=== PATIENT | female | born 1980 | race Caucasian/White ===

== ENCOUNTER → 2017-11-14 | Outpatient (CLI) | payer BC ==
[~2017-11-14] MED LIST: ACE325 PO; ALBU8.5H12 IH; CETI10CA8 PO; CIP500 PO; CLON-298 PO; CODE473S6 PO; CYC10 PO; DIP25 PO; DOC100 PO; FLUO-201 PO; FLUT16SP19 NS; GUAI177L6 PO; HYDR-4309 PO; IBU800 PO; IBUP800T37 PO; KET10 PO; L-THYROXINE PO; LEVO50TA86 PO; LOR5 PO; LOR5/325 PO; LORA-1458 PO; LORA10CA3 PO; MONT10TA PO; NAPR500T75 PO; NORE-7 PO; NORG1TAB61 PO; OMEP-125 PO; OXYC-865 PO; PER PO; PHENA200 PO; PRE20 PO; PSEU1TAB PO; SULF-198 PO; TRAM-420 PO; TRAM-627 PO
[2017-11-14 13:28] LABS: LDL CHOLESTEROL 117 mg/dl
== END ==
LOC: LAB 12:53
PROVIDERS: ATTEND Nurse Practitioner Family
DX: E03.9 Hypothyroidism, unspecified (principal); E55.9 Vitamin D deficiency, unspecified
CPT/HCPCS: 36415; 82040; 82247; 82306; 82310; 82374; 82435; 82465; 82565; 82947; 83718; 84075; 84132; 84155; 84295; 84443; 84450; 84460; 84478; 84520

== ENCOUNTER → 2018-01-08 | Outpatient (CLI) | payer BC ==
--- NOTE | 2018-01-08 15:06 | RADIOLOGY IMAGING REPORT ---
[place] [facility] [place] Lauryn Ho : 1980 MR: [id number] V: [id number] EXAM DATE: ORDERING PHYSICIAN: KEVIN AYALA TECHNOLOGIST: Location: [facility] - [place] Patient: Lauryn Ho : 1980 Visit/Account:[id number] Date of Sevice: 01/08/2018 SINUSES W/O CONTRAST Provided history: Allergic sinusitis. Chronic maxillary sinusitis. Additional pertinent history: none COMPARISON STUDIES: none TECHNIQUE: Contiguous axial images were obtained through the paranasal sinuses without intravenous c ontrast administration. Coronal reformatted images were obtained from the axial source data. One of the following dose optimization techniques was utilized in the performance of this exam: Autom ated exposure control; adjustment of the mA and/or kV according to the patient's size; or use of an i terative reconstruction technique. Specific details can be referenced in the facility's radiology CT exam operational policy. FINDINGS: RIGHT Maxillary antrum / OMC: There is no mucosal thickening and/or fluid level. A small Luis Enrique cell and sm all osseous periventricular T2 narrowing of the ostium to the infundibulum. The infundibular channel itself remains widely patent. Hiatus semilunaris also patent. Frontal / anterior ethmoid cells: No mucosal thickening. A moderate size agger-nasi cell narrows the frontal recess. Sphenoid / posterior ethmoid cells: Small retention cyst noted posteriorly right sphenoid cell. LEFT Maxillary antrum / OMC: negative Frontal / anterior ethmoid cells: There are several organizing cells contributing to narrowing of the frontal recess. No inflammation. Sphenoid / posterior ethmoid cells: negative Nasal septum / turbinates / cavity: Mild leftward deviation with a moderate-sized left lateral nasal septal spur level of middle meatus does not fully detoxed lateral wall. No nasal polyps. Cribriform plate / fovea ethmoidalis / floor of sella: negative Basal foramina: negative TMJs: negative Orbits: negative Visualized intracranial contents / surrounding soft tissues: negative IMPRESSION: 1. No significant paranasal sinus inflammatory disease and no nasal polyps. 2. Moderate narrowing of the ostium to the right infundibulum for reasons discussed above. This may p redispose to intermittent right maxillary sinus inflammatory disease. None currently. 3. Bilateral agger nasi cells can predispose to frontoethmoidal recess narrowing but I see no inflamm atory change current time. Report Dictated By: González Garcia MD at 01/08/2018 2:50 PM Report E-Signed By: González Garcia MD at 01/08/2018 3:02 PM WSN:[email or web address]
== END ==
LOC: CT 01:31
PROVIDERS: ATTEND Otolaryngology
DX: J30.1 Allergic rhinitis due to pollen (principal); J32.0 Chronic maxillary sinusitis; J34.2 Deviated nasal septum
CPT/HCPCS: 70486

== ENCOUNTER → 2018-02-27 | Outpatient (CLI) | payer BC | LOC: LAB 10:03 | PROVIDERS: ATTEND Nurse Practitioner Family | DX: E55.9 Vitamin D deficiency, unspecified (principal); E03.9 Hypothyroidism, unspecified | CPT/HCPCS: 36415; 82306; 84443 ==

== ENCOUNTER → 2018-06-05 | Outpatient (CLI) | payer BC ==
[~2018-06-05] MED LIST changes: -CLON-298 PO; +CLON-331 PO
== END ==
LOC: LAB 10:07
PROVIDERS: ATTEND Nurse Practitioner Family
DX: E03.9 Hypothyroidism, unspecified (principal)
CPT/HCPCS: 36415; 82040; 82247; 82310; 82374; 82435; 82565; 82947; 84075; 84132; 84155; 84295; 84443; 84450; 84460; 84520

== ENCOUNTER 2018-06-18 20:13 | Emergency (ER) | payer BC ==
--- NOTE | 2018-06-18 20:19 | ER Report ---
History and Physical Time Seen By MD: 20:17 HPI/ROS CHIEF COMPLAINT: Right foot and ankle pain HISTORY OF PRESENT ILLNESS: 38-year-old female presents with right ankle pain that started last night. She recalls no traumatic injury. She notes throbbing pain 06/08 unrelieved with ibuprofen 400 mg. She notes no swelling. She denies history of gout. Patient notes pain in the forefoot as well as the ankle. She has decreased range of motion at the ankle. Allergies: Coded Allergies: amoxicillin (Verified Allergy, Intermediate, PROJECTILE VOMITING, 06/18/18) erythromycin base (Verified Allergy, Intermediate, PROJECTILE VOMITING, ) Penicillins (Verified Allergy, Mild, 06/18/18) Uncoded Allergies: HAYFEVER (Allergy, Intermediate, SNEEZING, ITCHING, WATERY EYES, 01/30/13) Home Meds Active Scripts Tramadol Hcl (TRAMADOL HCL) 50 Mg Tablet, 1 TAB PO Q6H Y for PAIN, #12 TAB Prov:JOSUÉ BLOOD DO 06/18/18 Reported Medications Omeprazole (OMEPRAZOLE) 20 Mg Capsule.dr, 1 CAP PO QDAY, CAP 06/11/17 Fluoxetine Hcl (PROZAC) 10 Mg Capsule, 60 MG PO QDAY, 0 Refills 06/24/13 Norgestrel-Ethinyl Estradiol (LO-OVRAL-28) 1 Each Tablet, 1 EACH PO 05/29/13 Discontinued Reported Medications Levothyroxine Sodium (LEVOTHYROXINE SODIUM) 50 Mcg Tablet, 50 MCG PO QDAY, TAB 09/10/16 Loratadine (CLARITIN) 10 Mg Capsule, 10 MG PO QDAY, CAPSULE 12/16/15 Reviewed Nurses Notes: Yes Old Medical Records Reviewed: Yes Hx Smoking: Yes (1/2ppd) Smoking Status: Current: Every Day Smoker Exposure to Second Hand Smoke?: Yes Hx Substance Use Disorder: No Hx Alcohol Use: No Constitutional Vital Sign - Last 24 Hours 06/18/18 06/18/18 06/18/18 06/18/18 20:16 20:20 20:28 20:43 Temp 98.3 Pulse 72 75 76 Resp 16 B/P (MAP) 163/76 128/76 (93) Pulse Ox 94 92 92 O2 Delivery Room Air 06/18/18 20:58 Pulse 74 Pulse Ox 92 Physical Exam General appearance: Alert no distress. Respiratory: Chest is non tender, lungs are clear to auscultation. Cardiac: Regular rate and rhythm Extremities: Examination of the right foot reveals no soft tissue swelling, bruising or ecchymosis. There is tenderness around the ankle and the top of the forefoot. All toes are neurovascularly intact. There is no pain on movement of the toes. There is pain on movement of the ankle. He is no warmth or swelling to any of the joints. DIFFERENTIAL DIAGNOSIS: After history and physical exam differential diagnosis was considered for sprain, strain, fracture, dislocation, arthritis flare, contusion, gout Medical Decision Making EKG/Imaging Imaging X-ray: Three-view right ankle was obtained. I viewed the images myself on the PACS system. My interpretation of the images is: No fracture no dislocation or malalignment. There were some degenerative changes noted The radiologist interpretation had no clinically significant variation from this interpretation. ED Course/Re-evaluation ED Course Patient was admitted to an examination room. H&P was done. The differential diagnoses was considered. On clinical examination. Patient has significant pain in her ankle. There is no soft tissue swelling is no warmth. There is no effusion. There is pain on movement. 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 She recalls no injury. Patient's x-rays were unremarkable. Results are discussed with her. A conservative treatment plan is formulated. Patient advised ibuprofen 600 mg 3 times daily. She's given a prescription for tramadol for temporary pain relief. Patient's placed in Diego wrap and air splint for support. Patient advised to follow-up with primary care if unimproved in 3-5 days. Decision to Disposition Date: Jun 18, 2018 Decision to Disposition Time: 20:54 Depart Departure Latest Vital Signs Vital Signs Date Time Temp Pulse Resp B/P (MAP) Pulse Ox O2 Delivery O2 Flow Rate FiO2 06/18/18 20:58 74 92 06/18/18 20:20 128/76 (93) 06/18/18 20:16 98.3 16 Room Air Impression: Primary Impression: Acute right ankle pain Condition: Improved Disposition: HOME OR SELF-CARE Referrals: BLOSSOM JACOBSON (PCP) New Scripts Tramadol Hcl (TRAMADOL HCL) 50 Mg Tablet 1 TAB PO Q6H Y for PAIN, #12 TAB Prov: JOSUÉ BLOOD DO 06/18/18 Patient Instructions: Foot Sprain (ED) Additional Instructions: Take ibuprofen 200 mg 3 tablets 3 times a day with food Apply heating pad to your foot Wear splint for one week Use tramadol for pain relief Follow-up with her primary care if unimproved in 3-5 days JOSUÉ BLOOD DO Jun 18, 2018 20:18
[2018-06-18 20:20] VITALS: BP 128/76
[2018-06-18] MEDS ORDERED: TRAM-420 PO (20:57)
[2018-06-18] MEDS ORDERED: traMADol 50 MG TAB TH 2 TAB/BOTTLE PO ONE (21:00)
--- NOTE | 2018-06-18 21:08 | RADIOLOGY IMAGING REPORT ---
FACILITY: [facility] - [place] PATIENT NAME: Lauryn Ho : 1980 MR: [id number] V: [id number] EXAM DATE: ORDERING PHYSICIAN: JOSUÉ BLOOD TECHNOLOGIST: Location: [facility] - [place] Patient: Lauryn Ho : 1980 Visit/Account:[id number] Date of Sevice: 06/18/2018 ANKLE 3 VIEW MIN RIGHT HISTORY: Pain. No acute injury. COMPARISON: None FINDINGS: No evidence of acute fracture or dislocation. Talar dome is smooth in contour. Bohler angle is well maintained. Base of the 5th metatarsal is intact. Dorsal spurring at the midfoot and navicul ar. Probable large os peroneum. IMPRESSION: 1. No acute osseous abnormality. Report Dictated By: Sunil Narvaez MD at 06/18/2018 9:02 PM Report E-Signed By: Sunil Narvaez MD at 06/18/2018 9:05 PM [id number]
== END 2018-06-18 21:11 | disposition home or self-care (01) ==
LOC: ER 20:42
DX: M79.671 Pain in right foot (principal); M25.571 Pain in right ankle and joints of right foot
CPT/HCPCS: 99283; C9399; L1930

== ENCOUNTER → 2018-08-06 | Outpatient (CLI) | payer BC | LOC: LAB 14:17 | PROVIDERS: ATTEND Nurse Practitioner Family | DX: E03.9 Hypothyroidism, unspecified (principal); E55.9 Vitamin D deficiency, unspecified; G44.221 Chronic tension-type headache, intractable | CPT/HCPCS: 36415; 82040; 82247; 82306; 82310; 82374; 82435; 82565; 82947; 84075; 84132; 84155; 84295; 84443; 84450; 84460; 84520 ==

== ENCOUNTER 2018-08-16 18:01 | Emergency (ER) | payer BC ==
[~2018-08-16 18:01] MED LIST changes: -HYDR-4309 PO; +HYDR-653 PO
--- NOTE | 2018-08-16 18:09 | ER Report ---
History and Physical Time Seen By MD: 18:06 HPI/ROS CHIEF COMPLAINT: Left upper quadrant abdominal pain HISTORY OF PRESENT ILLNESS: [id number] female presents ambulatory to the ER complaining of severe left upper quadrant pain, onset 45 minutes ago. She notes no radiation. She notes no alleviating or exacerbating factors. She notes some mild nausea. She notes no hematuria. She denies history of kidney stones. She denies change in bowel habits such as diarrhea or constipation. She is status post appendectomy. She notes no fever or chills. REVIEW OF SYSTEMS: Respiratory: No cough, no dyspnea. Cardiovascular: No chest pain, no palpitations. Gastrointestinal: As above Musculoskeletal: No back pain. Allergies: Coded Allergies: amoxicillin (Verified Allergy, Intermediate, PROJECTILE VOMITING, 07/30 06/16) erythromycin base (Verified Allergy, Intermediate, PROJECTILE VOMITING, 08/16/18) Penicillins (Verified Allergy, Mild, 08/16/18) Uncoded Allergies: HAYFEVER (Allergy, Intermediate, SNEEZING, ITCHING, WATERY EYES, 01/30/13) Home Meds Active Scripts Hydrocodone Bit/Acetaminophen (NORCO 5-325 TABLET) 1 Each Tablet, 1 EACH PO Q4H PRN for PAIN, #10 TAB Prov:JOSUÉ BLOOD DO 08/16/18 Reported Medications Sulfamethoxazole/Trimet 800-160 Mg Tab (BACTRIM DS TABLET) 1 Each Tablet, 1 TAB PO Q12H, TAB 08/16/18 Guaifenesin (MUCINEX) 600 Mg Tablet.er, 600 MG PO 08/16/18 Diphenhydramine Hcl (BENADRYL) 25 Mg Capsule, 25 MG PO Q6-8H, CAPSULE 08/16/18 Omeprazole (OMEPRAZOLE) 20 Mg Capsule.dr, 1 CAP PO QDAY, CAP 06/11/17 Fluoxetine Hcl (PROZAC) 10 Mg Capsule, 60 MG PO QDAY, 0 Refills 06/24/13 Norgestrel-Ethinyl Estradiol (LO-OVRAL-28) 1 Each Tablet, 1 EACH PO 05/29/13 Discontinued Scripts Tramadol Hcl (TRAMADOL HCL) 50 Mg Tablet, 1 TAB PO Q6H PRN for PAIN, #12 TAB Prov:JOSUÉ BLOOD DO 06/18/18 Reviewed Nurses Notes: Yes Old Medical Records Reviewed: Yes Hx Smoking: Yes (1/2ppd) Smoking Status: Current: Every Day Smoker Exposure to Second Hand Smoke?: Yes Hx Substance Use Disorder: No Hx Alcohol Use: No Constitutional Vital Sign - Last 24 Hours 08/16/18 08/16/18 18:17 21:07 Temp 98.9 Pulse 73 85 Resp 16 16 B/P (MAP) 152/76 128/64 (85) Pulse Ox 95 92 O2 Delivery Room Air Room Air Physical Exam General Appearance: The patient is alert, has no immediate need for airway protection and no current signs of toxicity. Vital signs stable, afebrile, pulse ox normal Eyes: Pupils equal and round no injection. Anicteric sclera Respiratory: Chest is non tender, lungs are clear to auscultation. Cardiac: regular rate and rhythm Gastrointestinal: Abdomen is soft, moderate left upper quadrant tenderness with guarding, no rebound, no masses, bowel sounds decreased. Musculoskeletal: Neck: Neck is supple and non tender. Extremities have full range of motion and are non tender. Skin: No rashes or lesions. DIFFERENTIAL DIAGNOSIS: After history and physical exam differential diagnosis was considered for abdominal pain including but not limited to appendicitis, cholecystitis, gastritis and urinary tract infection. Medical Decision Making Data Points Result Diagram: 08/16/186 08/16/181855 Laboratory Hematology Test 08/16/18 18:16 08/16/18 18:56 Urine Color Straw Urine Clarity Clear Urine pH 6.0 pH (4.8-9.5) Urine Specific Page 1.009 Urine Protein Negative mg/dL (NEGATIVE) Urine Glucose (UA) Negative mg/dL (NEGATIVE) Urine Ketones Negative mg/dL (NEGATIVE) Urine Blood Small (NEGATIVE) Urine Nitrite Negative (NEGATIVE) Urine Bilirubin Negative (NEGATIVE) Urine Urobilinogen Negative mg/dL (0.2-1.9) Urine Leukocyte Esterase Moderate (NEGATIVE) Urine RBC 2 /HPF (0-2/HPF) Urine WBC 4 /HPF (0-5/HPF) Urine Squamous Epithelial Cells Many /LPF (</=FEW) Urine Bacteria Few /HPF (NONE-FEW) Urine Mucus None /HPF (NONE-FEW) Red Blood Count 5.06 M/uL (4.17-5.56) Mean Corpuscular Volume 90.7 fL (80.0-96.0) Mean Corpuscular Hemoglobin 31.5 pg (26.0-33.0) Mean Corpuscular Hemoglobin Concent 34.7 g/dL (32.0-36.0) Red Cell Distribution Width 13.2 % (11.5-14.5) Mean Platelet Volume 9.3 fL (7.2-11.1) Neutrophils (%) (Auto) 52.7 % (39.4-72.5) Lymphocytes (%) (Auto) 33.2 % (17.6-49.6) Monocytes (%) (Auto) 10.3 % (4.1-12.4) Eosinophils (%) (Auto) 1.6 % (0.4-6.7) Basophils (%) (Auto) 2.2 % (0.3-1.4) Nucleated RBC Relative Count (auto) 0.1 /100WBC Neutrophils # (Auto) 4.9 K/uL (2.0-7.4) Lymphocytes # (Auto) 3.1 K/uL (1.3-3.6) Monocytes # (Auto) 1.0 K/uL (0.3-1.0) Eosinophils # (Auto) 0.1 K/uL (0.0-0.5) Basophils # (Auto) 0.2 K/uL (0.0-0.1) Nucleated RBC Absolute Count (auto) 0.01 K/uL Sodium Level 142 mmol/L (137-145) Potassium Level 3.4 mmol/L (3.5-5.0) Chloride Level 104 mmol/L (98-107) Carbon Dioxide Level 26 mmol/L (22-31) Blood Urea Nitrogen 16 mg/dl (7-18) Creatinine 0.80 mg/dl (0.52-1.04) Glomerular Filtration Rate Calc > 60.0 Random Glucose 89 mg/dl (75-110) Calcium Level 9.0 mg/dl (8.4-10.2) Total Bilirubin 0.2 mg/dl (0.2-1.3) Aspartate Amino Transf (AST/SGOT) 20 U/L (0-35) Alanine Aminotransferase (ALT/SGPT) 22 U/L (0-56) Alkaline Phosphatase 58 U/L (0-126) Total Protein 7.1 g/dl (6.3-8.2) Albumin 3.9 g/dl (3.5-5.0) Amylase Level 108 U/L (0-110) Lipase 147 U/L (23-300) Human Chorionic Gonadotropin, Qual Negative (NEGATIVE) Chemistry Test 08/16/18 18:16 08/16/18 18:56 Urine Color Straw Urine Clarity Clear Urine pH 6.0 pH (4.8-9.5) Urine Specific Page 1.009 Urine Protein Negative mg/dL (NEGATIVE) Urine Glucose (UA) Negative mg/dL (NEGATIVE) Urine Ketones Negative mg/dL (NEGATIVE) Urine Blood Small (NEGATIVE) Urine Nitrite Negative (NEGATIVE) Urine Bilirubin Negative (NEGATIVE) Urine Urobilinogen Negative mg/dL (0.2-1.9) Urine Leukocyte Esterase Moderate (NEGATIVE) Urine RBC 2 /HPF (0-2/HPF) Urine WBC 4 /HPF (0-5/HPF) Urine Squamous Epithelial Cells Many /LPF (</=FEW) Urine Bacteria Few /HPF (NONE-FEW) Urine Mucus None /HPF (NONE-FEW) White Blood Count 9.2 k/uL (4.5-11.0) Red Blood Count 5.06 M/uL (4.17-5.56) Hemoglobin 16.0 g/dL (12.0-16.0) Hematocrit 45.9 % (34.0-47.0) Mean Corpuscular Volume 90.7 fL (80.0-96.0) Mean Corpuscular Hemoglobin 31.5 pg (26.0-33.0) Mean Corpuscular Hemoglobin Concent 34.7 g/dL (32.0-36.0) Red Cell Distribution Width 13.2 % (11.5-14.5) Platelet Count 213 K/uL (150-450) Mean Platelet Volume 9.3 fL (7.2-11.1) Neutrophils (%) (Auto) 52.7 % (39.4-72.5) Lymphocytes (%) (Auto) 33.2 % (17.6-49.6) Monocytes (%) (Auto) 10.3 % (4.1-12.4) Eosinophils (%) (Auto) 1.6 % (0.4-6.7) Basophils (%) (Auto) 2.2 % (0.3-1.4) Nucleated RBC Relative Count (auto) 0.1 /100WBC Neutrophils # (Auto) 4.9 K/uL (2.0-7.4) Lymphocytes # (Auto) 3.1 K/uL (1.3-3.6) Monocytes # (Auto) 1.0 K/uL (0.3-1.0) Eosinophils # (Auto) 0.1 K/uL (0.0-0.5) Basophils # (Auto) 0.2 K/uL (0.0-0.1) Nucleated RBC Absolute Count (auto) 0.01 K/uL Glomerular Filtration Rate Calc > 60.0 Calcium Level 9.0 mg/dl (8.4-10.2) Total Bilirubin 0.2 mg/dl (0.2-1.3) Aspartate Amino Transf (AST/SGOT) 20 U/L (0-35) Alanine Aminotransferase (ALT/SGPT) 22 U/L (0-56) Alkaline Phosphatase 58 U/L (0-126) Total Protein 7.1 g/dl (6.3-8.2) Albumin 3.9 g/dl (3.5-5.0) Amylase Level 108 U/L (0-110) Lipase 147 U/L (23-300) Human Chorionic Gonadotropin, Qual Negative (NEGATIVE) Urinalysis Test 08/16/18 18:16 Urine Color Straw Urine Clarity Clear Urine pH 6.0 pH (4.8-9.5) Urine Specific Page 1.009 Urine Protein Negative mg/dL (NEGATIVE) Urine Glucose (UA) Negative mg/dL (NEGATIVE) Urine Ketones Negative mg/dL (NEGATIVE) Urine Blood Small (NEGATIVE) Urine Nitrite Negative (NEGATIVE) Urine Bilirubin Negative (NEGATIVE) Urine Urobilinogen Negative mg/dL (0.2-1.9) Urine Leukocyte Esterase Moderate (NEGATIVE) Urine RBC 2 /HPF (0-2/HPF) Urine WBC 4 /HPF (0-5/HPF) Urine Squamous Epithelial Cells Many /LPF (</=FEW) Urine Bacteria Few /HPF (NONE-FEW) Urine Mucus None /HPF (NONE-FEW) EKG/Imaging Imaging Results: CT scan of the mid and pelvis with IV contrast was obtained. The results of the study are EXAMINATION: CT abdomen and pelvis with IV contrast HISTORY: Left lower quadrant pain. TECHNIQUE: Axial CT images of the abdomen and pelvis were obtained with IV contrast, with coronal and sagittal 2D reconstructed images. One of the following dose optimization techniques was utilized in the performance of this exam: Automated exposure control; adjustment of the mA and/or kV according to the patient's size; or use of an iterative reconstruction technique. Specific details can be referenced in the facility's radiology CT exam operational policy. Contrast: 75 mL of IV Isovue-370. COMPARISON: None. FINDINGS: Liver: Negative. Gallbladder and bile ducts: Negative. Spleen: Negative. Pancreas: Negative. Adrenal glands: Negative. Kidneys: Negative. No hydronephrosis or urinary calculi. Bowel and peritoneum: The small bowel and colon are normal in caliber, without evidence of obstruction or any focal inflammatory process. No localized bowel wall thickening. The appendix is surgically absent. No free fluid or free intraperitoneal air. Small hiatal hernia. Pelvic structures: Lobular uterus with a likely 2.2 cm fibroid along the right uterine fundus. Lymph node assessment: Negative. Vessels: Negative. Musculoskeletal: Negative. Body wall: Negative. Lung bases: Negative. IMPRESSION: 1. No CT evidence of acute intra-abdominal pathology. No source of left-sided pain is identified. 2. The small bowel and colon are unremarkable by CT. Prior appendectomy. 3. Small hiatal hernia. 4. Uterine fibroid. The study was read by the radiologist. I viewed the images myself on the PACS system. ED Course/Re-evaluation Clinical Indication for ER IV: Hydration, IV Access ED Course Patient was admitted to an examination room. H&P was done. The differential diagnoses was considered. On conical examination here left upper quadrant pain with rebound and guarding. Her diagnostic studies are unremarkable. Patient's treated with IV fluids, Zofran, fentanyl, Toradol. Can of the abdomen and pelvis was performed. Since her pain persisted despite medication with analgesics. Her CAT scan was unremarkable. Her results are discussed with her. She is advised to conservative treatment plan of clear liquid diet. She was given a limited supply of hydrocodone pain pills #10 for temporary pain relief. She is advised to follow-up with her primary care if unimproved in 3-5 days. Decision to Disposition Date: Aug 16, 2018 Decision to Disposition Time: 20:59 Depart Departure Latest Vital Signs Vital Signs Date Time Temp Pulse Resp B/P (MAP) Pulse Ox O2 Delivery O2 Flow Rate FiO2 08/16/18 21:07 85 16 128/64 (85) 92 Room Air 08/16/18 18:17 98.9 Impression: Primary Impression: Left upper quadrant abdominal pain of unknown etiology Additional Impression: Urinary tract infection Condition: Improved Disposition: HOME OR SELF-CARE Referrals: BLOSSOM JACOBSON (PCP) New Scripts Hydrocodone Bit/Acetaminophen (NORCO 5-325 TABLET) 1 Each Tablet 1 EACH PO Q4H PRN for PAIN, #10 TAB Prov: JOSUÉ BLOOD DO 08/16/18 Patient Instructions: Abdominal Pain (ED), Clear Liquid Diet (ED) Additional Instructions: Follow-up with your primary care if unimproved in 2 days Problem Qualifiers Additional Impression: Urinary tract infection Urinary tract infection type: acute cystitis Hematuria presence: without hematuria Qualified Codes: N30.00 - Acute cystitis without hematuria JOSUÉ BLOOD DO Aug 16, 2018 18:09
[2018-08-16] MEDS ORDERED: DIPH-740 PO (18:22)
[2018-08-16] MEDS ORDERED: SULF-198 PO (18:22)
[2018-08-16] MEDS ORDERED: GUAI600T57 PO (18:22)
[2018-08-16] MEDS ORDERED: NS(*) 0.9% 1000 ML BAG 1,000 ML IV ONE (18:22)
[2018-08-16] MEDS ORDERED: ONDANSETRON 4 MG/2 ML VIAL IVP ONE (18:25)
[2018-08-16] MEDS ORDERED: MORPHINE 4 MG/ML SDV IVP ONE (18:25)
[2018-08-16 19:09] LABS: PLATELET COUNT, AUTOMATED 213 K/uL (150-450)
[2018-08-16] MEDS ORDERED: KETOROLAC 30 MG/ML VIAL IVP ONE (19:25)
[2018-08-16] MEDS ORDERED: IOPAMIDOL 76% 75 ML INFUS BTL 75 ML ONE (20:11)
--- NOTE | 2018-08-16 20:52 | RADIOLOGY IMAGING REPORT ---
FACILITY: [facility] - [place] PATIENT NAME: Lauryn Ho : 1980 MR: [id number] V: [id number] EXAM DATE: ORDERING PHYSICIAN: JOSUÉ BLOOD TECHNOLOGIST: Location: [facility] - [place] Patient: Lauryn Ho : 1980 Visit/Account:[id number] Date of Sevice: 08/16/2018 EXAMINATION: CT abdomen and pelvis with IV contrast HISTORY: Left lower quadrant pain. TECHNIQUE: Axial CT images of the abdomen and pelvis were obtained with IV contrast, with coronal a nd sagittal 2D reconstructed images. One of the following dose optimization techniques was utilized in the performance of this exam: Autom ated exposure control; adjustment of the mA and/or kV according to the patient's size; or use of an i terative reconstruction technique. Specific details can be referenced in the facility's radiology C T exam operational policy. Contrast: 75 mL of IV Isovue-370. COMPARISON: None. FINDINGS: Liver: Negative. Gallbladder and bile ducts: Negative. Spleen: Negative. Pancreas: Negative. Adrenal glands: Negative. Kidneys: Negative. No hydronephrosis or urinary calculi. Bowel and peritoneum: The small bowel and colon are normal in caliber, without evidence of obstructi on or any focal inflammatory process. No localized bowel wall thickening. The appendix is surgically absent. No free fluid or free intraperitoneal air. Small hiatal hernia. Pelvic structures: Lobular uterus with a likely 2.2 cm fibroid along the right uterine fundus. Lymph node assessment: Negative. Vessels: Negative. Musculoskeletal: Negative. Body wall: Negative. Lung bases: Negative. IMPRESSION: 1. No CT evidence of acute intra-abdominal pathology. No source of left-sided pain is identified. 2. The small bowel and colon are unremarkable by CT. Prior appendectomy. 3. Small hiatal hernia. 4. Uterine fibroid. Report Dictated By: Zacarias Bauer MD at 08/16/2018 8:40 PM Report E-Signed By: Zacarias Bauer MD at 08/16/2018 8:48 PM WSN:[id number]
[2018-08-16] MEDS ORDERED: HYDR-653 PO (21:02)
[2018-08-16] MEDS ORDERED: ACET/HYDROC 5/325MG TH ER ONLY 2 TAB/BOTTLE PO ONE (21:05)
[2018-08-16 21:07] VITALS: BP 128/64
== END 2018-08-16 21:16 | disposition home or self-care (01) ==
LOC: ER 18:36
DX: R10.12 Left upper quadrant pain (principal); N30.00 Acute cystitis without hematuria; F17.210 Nicotine dependence, cigarettes, uncomplicated
CPT/HCPCS: 74177; 81001; 82150; 83690; 84703; 85025; 96374; 96375; 99284; J1885; J2270; J2405; J7030; Q9967; 82040; 82247; 82310; 82374; 82435; 82565; 82947; 84075; 84132; 84155; 84295; 84450; 84460; 84520

== ENCOUNTER 2018-08-21 19:56 | Emergency (ER) | payer BC ==
[~2018-08-21 19:56] MED LIST changes: +DIPH-740 PO; +GUAI600T57 PO
--- NOTE | 2018-08-21 20:11 | ER Report ---
History and Physical Time Seen By MD: 20:11 Hx. of Stated Complaint: PT HAS HAD LOWER LEFT BACK PAIN FOR A WEEK BUT IT STARTED GETTING SHARP AND PAINFUL TONIGHT. HPI/ROS CHIEF COMPLAINT: Abdominal pain, left flank pain HISTORY OF PRESENT ILLNESS: 38-year-old female patient presents to the emergency room with complaint of abdominal pain and left flank pain. Patient states that she has had this pain since last week, she was seen last week and had an unremarkable workup. She states that she was sitting there watching TV this evening when the pain started. States the pain is worse today than it was a week ago. She denies any nausea, vomiting or diarrhea. Patient states she is not taking any medication for this. She states she does have a follow-up appointment on with her primary care provider. Patient states there is nothing seems to make the pain better or worse. She states she does have some dizziness from time to time. She states she is unsure of the cause of the dizziness. REVIEW OF SYSTEMS: Respiratory: No cough, no dyspnea. Cardiovascular: No chest pain, no palpitations. Gastrointestinal: As noted above Musculoskeletal: No back pain. Allergies: Coded Allergies: amoxicillin (Verified Allergy, Intermediate, PROJECTILE VOMITING, 08/21/18) erythromycin base (Verified Allergy, Intermediate, PROJECTILE VOMITING, 08/21/18) Penicillins (Verified Allergy, Mild, 08/21/18) Uncoded Allergies: HAYFEVER (Allergy, Intermediate, SNEEZING, ITCHING, WATERY EYES, 01/30/13) Home Meds Active Scripts Ondansetron (ZOFRAN ODT) 4 Mg Tab.rapdis, 4 MG PO Q6H PRN for NAUSEA/VOMITING, #20 TAB.ROBYN Prov:COLUMBA DURANT SEAM RUBBING MACHINE OPERATOR 08/21/18 Hydrocodone Bit/Acetaminophen (HYDROCODON-ACETAMINOPHEN 5-325) 1 Each Tablet, 1 EACH PO Q4-6H PRN for PAIN, #10 TAB Prov:COLUMBA DURANT SEAM RUBBING MACHINE OPERATOR 08/21/18 Hydrocodone Bit/Acetaminophen (NORCO 5-325 TABLET) 1 Each Tablet, 1 EACH PO Q4H PRN for PAIN, #10 TAB Prov:JOSUÉ BLOOD DO 08/16/18 Reported Medications Sulfamethoxazole/Trimet 800-160 Mg Tab (BACTRIM DS TABLET) 1 Each Tablet, 1 TAB PO Q12H, TAB 08/16/18 Guaifenesin (MUCINEX) 600 Mg Tablet.er, 600 MG PO 08/16/18 Diphenhydramine Hcl (BENADRYL) 25 Mg Capsule, 25 MG PO Q6-8H, CAPSULE 08/16/18 Omeprazole (OMEPRAZOLE) 20 Mg Capsule.dr, 1 CAP PO QDAY, CAP 06/11/17 Fluoxetine Hcl (PROZAC) 10 Mg Capsule, 60 MG PO QDAY, 0 Refills 06/24/13 Norgestrel-Ethinyl Estradiol (LO-OVRAL-28) 1 Each Tablet, 1 EACH PO 05/29/13 Discontinued Scripts Tramadol Hcl (TRAMADOL HCL) 50 Mg Tablet, 1 TAB PO Q6H PRN for PAIN, #12 TAB Prov:JOSUÉ BLOOD Sushma DO 06/18/18 Past Medical/Surgical History Patient has a past medical history of migraines, palpitations, bronchitis, pneumonia, gastritis, back pain, hypothyroidism, depression and anxiety. Patient has a surgical history of right knee surgery, partial hysterectomy, appendectomy. Patient has a family medical history of cancer, CAD, stroke, diabetes. Reviewed Nurses Notes: Yes Hx Smoking: Yes (1/2ppd) Smoking Status: Current: Every Day Smoker Exposure to Second Hand Smoke?: Yes Hx Substance Use Disorder: No Hx Alcohol Use: No Constitutional Vital Sign - Last 24 Hours 08/21/18 08/21/18 08/21/18 08/21/18 20:00 20:01 20:11 20:15 Temp 98.4 Pulse 80 77 Resp 18 B/P (MAP) 153/76 (101) 153/76 123/89 (100) Pulse Ox 91 91 O2 Delivery Room Air 08/21/18 08/21/18 08/21/18 08/21/18 20:26 20:30 20:41 20:45 Pulse 84 76 B/P (MAP) 144/83 (103) 144/83 (103) Pulse Ox 91 89 08/21/18 08/21/18 08/21/18 08/21/18 20:48 20:52 20:53 20:56 Pulse 70 86 94 80 Resp 18 18 14 B/P (MAP) 128/81 (97) 137/83 (101) 138/88 (105) Pulse Ox 91 88 89 90 O2 Delivery Room Air Room Air Room Air 10/08/21/18 08/21/18 08/21/18 21:00 21:11 21:15 21:26 Pulse 78 77 B/P (MAP) 121/78 (92) 141/81 (101) Pulse Ox 89 89 08/21/18 08/21/18 08/21/18 08/21/18 21:31 21:46 21:47 22:00 Pulse ? B/P (MAP) 151/98 (115) 140/79 (99) 08/21/18 08/21/18 08/21/18 08/21/18 22:01 22:06 22:15 22:21 Pulse 72 71 66 B/P (MAP) 143/78 (99) Pulse Ox 89 90 90 08/21/18 08/21/18 08/21/18 08/21/18 22:30 22:36 22:42 22:45 Pulse 62 B/P (MAP) 138/96 (110) 141/91 (108) 137/113 (121) Pulse Ox 92 08/21/18 08/21/18 22:51 23:00 Pulse 59 B/P (MAP) 149/86 (107) Pulse Ox 94 Physical Exam General Appearance: The patient is alert, has no immediate need for airway protection and no current signs of toxicity. Respiratory: Chest is non tender, lungs are clear to auscultation. Cardiac: regular rate and rhythm Gastrointestinal: Abdomen is soft and tender in the left upper quadrant that seems to radiate around to the back, no masses, bowel sounds normal. Musculoskeletal: Neck: Neck is supple and non tender. Extremities have full range of motion and are non tender. Skin: No rashes or lesions. DIFFERENTIAL DIAGNOSIS: After history and physical exam differential diagnosis was considered for flank pain including but not limited to musculoskeletal causes, kidney stone, pyelonephritis, shingles, and intra-abdominal causes such as diverticulitis and appendicitis. Medical Decision Making Data Points Result Diagram: 08/21/18203308/21/182033 Laboratory Hematology Test 08/21/18 20:25 08/21/18 20:34 Urine Color Yellow Urine Clarity Slightly-cloudy Urine pH 6.0 pH (4.8-9.5) Urine Specific [place] 1.011 Urine Protein Negative mg/dL (NEGATIVE) Urine Glucose (UA) Negative mg/dL (NEGATIVE) Urine Ketones Negative mg/dL (NEGATIVE) Urine Blood Negative (NEGATIVE) Urine Nitrite Negative (NEGATIVE) Urine Bilirubin Negative (NEGATIVE) Urine Urobilinogen 2.0 mg/dL (0.2-1.9) Urine Leukocyte Esterase Small (NEGATIVE) Urine RBC 3 /HPF (0-2/HPF) Urine WBC 2 /HPF (0-5/HPF) Urine Squamous Epithelial Cells Many /LPF (</=FEW) Urine Bacteria Few /HPF (NONE-FEW) Urine Mucus None /HPF (NONE-FEW) Red Blood Count 5.21 M/uL (4.17-5.56) Mean Corpuscular Volume 90.8 fL (80.0-96.0) Mean Corpuscular Hemoglobin 30.9 pg (26.0-33.0) Mean Corpuscular Hemoglobin Concent 34.0 g/dL (32.0-36.0) Red Cell Distribution Width 13.3 % (11.5-14.5) Mean Platelet Volume 9.0 fL (7.2-11.1) Neutrophils (%) (Auto) 78.7 % (39.4-72.5) Lymphocytes (%) (Auto) 15.1 % (17.6-49.6) Monocytes (%) (Auto) 4.7 % (4.1-12.4) Eosinophils (%) (Auto) 0.8 % (0.4-6.7) Basophils (%) (Auto) 0.7 % (0.3-1.4) Nucleated RBC Relative Count (auto) 0.0 /100WBC Neutrophils # (Auto) 15.3 K/uL (2.0-7.4) Lymphocytes # (Auto) 2.9 K/uL (1.3-3.6) Monocytes # (Auto) 0.9 K/uL (0.3-1.0) Eosinophils # (Auto) 0.1 K/uL (0.0-0.5) Basophils # (Auto) 0.1 K/uL (0.0-0.1) Nucleated RBC Absolute Count (auto) 0.00 K/uL Sodium Level 140 mmol/L (137-145) Potassium Level 3.3 mmol/L (3.5-5.0) Chloride Level 105 mmol/L (98-107) Carbon Dioxide Level 23 mmol/L (22-31) Blood Urea Nitrogen 11 mg/dl (7-18) Creatinine 0.80 mg/dl (0.52-1.04) Glomerular Filtration Rate Calc > 60.0 Random Glucose 139 mg/dl (75-110) Calcium Level 9.1 mg/dl (8.4-10.2) Total Bilirubin 0.4 mg/dl (0.2-1.3) Aspartate Amino Transf (AST/SGOT) 26 U/L (0-35) Alanine Aminotransferase (ALT/SGPT) 18 U/L (0-56) Alkaline Phosphatase 51 U/L (0-126) C-Reactive Protein < 0.5 mg/dl (<1.0) Total Protein 7.3 g/dl (6.3-8.2) Albumin 4.0 g/dl (3.5-5.0) Amylase Level 82 U/L (0-110) Lipase 105 U/L (23-300) Chemistry Test 08/21/18 20:25 08/21/18 20:34 Urine Color Yellow Urine Clarity Slightly-cloudy Urine pH 6.0 pH (4.8-9.5) Urine Specific [place] 1.011 Urine Protein Negative mg/dL (NEGATIVE) Urine Glucose (UA) Negative mg/dL (NEGATIVE) Urine Ketones Negative mg/dL (NEGATIVE) Urine Blood Negative (NEGATIVE) Urine Nitrite Negative (NEGATIVE) Urine Bilirubin Negative (NEGATIVE) Urine Urobilinogen 2.0 mg/dL (0.2-1.9) Urine Leukocyte Esterase Small (NEGATIVE) Urine RBC 3 /HPF (0-2/HPF) Urine WBC 2 /HPF (0-5/HPF) Urine Squamous Epithelial Cells Many /LPF (</=FEW) Urine Bacteria Few /HPF (NONE-FEW) Urine Mucus None /HPF (NONE-FEW) White Blood Count 19.4 k/uL (4.5-11.0) Red Blood Count 5.21 M/uL (4.17-5.56) Hemoglobin 16.1 g/dL (12.0-16.0) Hematocrit 47.3 % (34.0-47.0) Mean Corpuscular Volume 90.8 fL (80.0-96.0) Mean Corpuscular Hemoglobin 30.9 pg (26.0-33.0) Mean Corpuscular Hemoglobin Concent 34.0 g/dL (32.0-36.0) Red Cell Distribution Width 13.3 % (11.5-14.5) Platelet Count 223 K/uL (150-450) Mean Platelet Volume 9.0 fL (7.2-11.1) Neutrophils (%) (Auto) 78.7 % (39.4-72.5) Lymphocytes (%) (Auto) 15.1 % (17.6-49.6) Monocytes (%) (Auto) 4.7 % (4.1-12.4) Eosinophils (%) (Auto) 0.8 % (0.4-6.7) Basophils (%) (Auto) 0.7 % (0.3-1.4) Nucleated RBC Relative Count (auto) 0.0 /100WBC Neutrophils # (Auto) 15.3 K/uL (2.0-7.4) Lymphocytes # (Auto) 2.9 K/uL (1.3-3.6) Monocytes # (Auto) 0.9 K/uL (0.3-1.0) Eosinophils # (Auto) 0.1 K/uL (0.0-0.5) Basophils # (Auto) 0.1 K/uL (0.0-0.1) Nucleated RBC Absolute Count (auto) 0.00 K/uL Glomerular Filtration Rate Calc > 60.0 Calcium Level 9.1 mg/dl (8.4-10.2) Total Bilirubin 0.4 mg/dl (0.2-1.3) Aspartate Amino Transf (AST/SGOT) 26 U/L (0-35) Alanine Aminotransferase (ALT/SGPT) 18 U/L (0-56) Alkaline Phosphatase 51 U/L (0-126) C-Reactive Protein < 0.5 mg/dl (<1.0) Total Protein 7.3 g/dl (6.3-8.2) Albumin 4.0 g/dl (3.5-5.0) Amylase Level 82 U/L (0-110) Lipase 105 U/L (23-300) Urinalysis Test 08/21/18 20:25 Urine Color Yellow Urine Clarity Slightly-cloudy Urine pH 6.0 pH (4.8-9.5) Urine Specific [place] 1.011 Urine Protein Negative mg/dL (NEGATIVE) Urine Glucose (UA) Negative mg/dL (NEGATIVE) Urine Ketones Negative mg/dL (NEGATIVE) Urine Blood Negative (NEGATIVE) Urine Nitrite Negative (NEGATIVE) Urine Bilirubin Negative (NEGATIVE) Urine Urobilinogen 2.0 mg/dL (0.2-1.9) Urine Leukocyte Esterase Small (NEGATIVE) Urine RBC 3 /HPF (0-2/HPF) Urine WBC 2 /HPF (0-5/HPF) Urine Squamous Epithelial Cells Many /LPF (</=FEW) Urine Bacteria Few /HPF (NONE-FEW) Urine Mucus None /HPF (NONE-FEW) EKG/Imaging Imaging ABDOMEN/PELVIS WITH CONTRAST COMPARISONS: 08/16/2018 ADDITIONAL PERTINENT HISTORY: Abdominal pain. TECHNIQUE: Multiple axial images were obtained from the lung bases through the lesser trochanters before and after the IV administration of IV contrast. One of the following dose optimization techniques was utilized in the performance of this exam: Automated exposure control; adjustment of the mA and/or kV according to the patient's size; or use of an iterative reconstruction technique. Specific details can be referenced in the facility's radiology CT exam operational policy. CONTRAST: 75 ml of Isovue 370 FINDINGS: Lung bases: Negative. Free air and free fluid: None. Liver: Negative. Spleen: Negative. Kidneys, ureters and urinary bladder: Negative. Adrenal glands: Negative. Pancreas: Negative. Gallbladder: Negative. Bowel and mesentery: Small hiatal hernia. Otherwise negative. Surgical clips in the right lower quadrant. Pelvic contents: Small enhancing lesion projecting off the right aspect of the uterus compatible with a small fibroid. Lymph node assessment: Negative. Retroperitoneum: Negative. Abdominal vasculature: Negative. Surrounding soft tissues: Negative. Osseous structures: Negative. IMPRESSION: No acute intra-abdominal or intra-pelvic process. Report Dictated By: Marcelo Hardin MD at 08/21/2018 10:07 PM Report E-Signed By: Marcelo Hardin MD at 08/21/2018 10:21 PM X-ray: Chest PA and LAT was obtained. I viewed the images myself on the PACS system. My interpretation of the images is: No acute cardiopulmonary processes. The radiologist interpretation is pending at the time of this dictation. ED Course/Re-evaluation ED Course Patient was admitted to an exam room, history and physical were obtained. Differential diagnoses were considered. On exam lungs are clear, heart is regular, abdomen is soft and tender in the left upper quadrant. Patient has some tenderness to the back and left upper quadrant as well. A urinalysis, CBC, CMP were done. I results were unremarkable except patient did have an elevated white count of 19,000. At that time I felt that it would be best to go ahead and re peat the CT scan even though she had [address] scan again showed no acute intra-abdominal abnormalities. With the negative urinalysis and the pain being the upper left quadrant and the back. I was concerned that she may possibly have a developing pneumonia, a chest x-ray was done which is reviewed by myself and showed no acute cardiopulmonary processes. Patient states she is currently on Bactrim for a sinusitis. We'll go ahead and have her continue that. I would like her to go ahead and follow-up with her primary care provider in 2 days previously scheduled. Patient will be given a prescription for a limited supply of pain medication. I am unsure as to what the cause of her elevated white count is. However at this time we have ruled out pneumonia, urinary tract infection and intra-abdominal infection. Decision to Disposition Date: Aug 21, 2018 Decision to Disposition Time: 22:47 Depart Departure Latest Vital Signs Vital Signs Date Time Temp Pulse Resp B/P (MAP) Pulse Ox O2 Delivery O2 Flow Rate FiO2 08/21/18 23:00 149/86 (107) 08/21/18 22:51 59 94 08/21/18 20:53 14 Room Air 08/21/18 20:01 98.4 Impression: Primary Impression: Left upper quadrant abdominal pain of unknown etiology Condition: Condition Unchanged Disposition: HOME OR SELF-CARE Referrals: BLOSSOM JACOBSON (PCP) New Scripts Ondansetron (ZOFRAN ODT) 4 Mg Tab.rapdis 4 MG PO Q6H PRN for NAUSEA/VOMITING, #20 TAB.ROBYN Prov: COLUMBA DURANT 08/21/18 Hydrocodone Bit/Acetaminophen (HYDROCODON-ACETAMINOPHEN 5-325) 1 Each Tablet 1 EACH PO Q4-6H PRN for PAIN, #10 TAB Prov: COLUMBA DURANT 08/21/18 Patient Instructions: Abdominal Pain (ED) Additional Instructions: Increase fluid intake. Get plenty of rest. Continue with current medication. Take your pain medication as prescribed. Return to the ER if condition worsens. Follow up with your primary care provider as scheduled. COLUMBA DURANT Aug 21, 2018 20:11
[2018-08-21] MEDS ORDERED: NS(*) 0.9% 1000 ML BAG 1,000 ML IV ONE (20:17)
[2018-08-21 20:45] LABS: PLATELET COUNT, AUTOMATED 223 K/uL (150-450)
[2018-08-21] MEDS ORDERED: IOPAMIDOL 76% 75 ML INFUS BTL 75 ML ONE (21:19)
--- NOTE | 2018-08-21 22:24 | RADIOLOGY IMAGING REPORT ---
[place] [facility] [place] Lauryn Ho : 1980 MR: [id number] V: [id number] EXAM DATE: ORDERING PHYSICIAN: COLUMBA DURANT TECHNOLOGIST: Location: [facility] Patient: Lauryn Ho : 1980 Visit/Account:[id number] Date of Sevice: 08/21/2018 ABDOMEN/PELVIS WITH CONTRAST COMPARISONS: 08/16/2018 ADDITIONAL PERTINENT HISTORY: Abdominal pain. TECHNIQUE: Multiple axial images were obtained from the lung bases through the lesser trochanters bef ore and after the IV administration of IV contrast. One of the following dose optimization technique s was utilized in the performance of this exam: Automated exposure control; adjustment of the mA and/ or kV according to the patient's size; or use of an iterative reconstruction technique. Specific de tails can be referenced in the facility's radiology CT exam operational policy. CONTRAST: 75 ml of Isovue 370 FINDINGS: Lung bases: Negative. Free air and free fluid: None. Liver: Negative. Spleen: Negative. Kidneys, ureters and urinary bladder: Negative. Adrenal glands: Negative. Pancreas: Negative. Gallbladder: Negative. Bowel and mesentery: Small hiatal hernia. Otherwise negative. Surgical clips in the right lower i[place] drant. Pelvic contents: Small enhancing lesion projecting off the right aspect of the uterus compatible wit h a small fibroid. Lymph node assessment: Negative. Retroperitoneum: Negative. Abdominal vasculature: Negative. Surrounding soft tissues: Negative. Osseous structures: Negative. IMPRESSION: No acute intra-abdominal or intra-pelvic process. Report Dictated By: Marcelo Hardin MD at 08/21/2018 10:07 PM Report E-Signed By: Marcelo Hardin MD at 08/21/2018 10:21 PM WSN:[id number]
[2018-08-21] MEDS ORDERED: HYDR-385 PO (22:45)
[2018-08-21] MEDS ORDERED: ACET/HYDROC 5/325MG TH ER ONLY 2 TAB/BOTTLE PO ONE (22:50)
--- NOTE | 2018-08-21 22:56 | RADIOLOGY IMAGING REPORT ---
FACILITY: [facility] - [place] PATIENT NAME: Lauryn Ho : 1980 MR: [id number] V: [id number] EXAM DATE: ORDERING PHYSICIAN: COLUMBA DURANT TECHNOLOGIST: [place] [facility] [place]: Lauryn Ho : 1980 Visit/Account:[id number] Date of Sevice: 08/21/2018 CHEST PA AND LAT COMPARISONS: June 11, 2017 ADDITIONAL PERTINENT HISTORY: Cough FINDINGS: Cardiomediastinal silhouette: Negative. Pulmonary vasculature: Negative. Lung [place]: Negative. Pleural spaces: Negative. Osseous structures: Negative. Surrounding soft tissues: Negative. IMPRESSION: No evidence of acute cardiopulmonary disease. Report Dictated By: Marcelo Hardin MD at 08/21/2018 10:51 PM Report E-Signed By: Marcelo Hardin MD at 08/21/2018 10:52 PM WSN:[id number]
[2018-08-21] MEDS ORDERED: ONDA4TAB PO (22:57)
[2018-08-21 23:00] VITALS: BP 149/86
[2018-08-21] MEDS ORDERED: ONDANSETRON 4 MG ODT TH SL ONE (23:00)
== END 2018-08-21 23:11 | disposition home or self-care (01) ==
LOC: ER 20:21
DX: R10.12 Left upper quadrant pain (principal)
CPT/HCPCS: 71046; 74177; 81001; 82150; 83690; 85025; 86140; 96360; 96361; 99284; J7030; Q9967; S0119; 82040; 82247; 82310; 82374; 82435; 82565; 82947; 84075; 84132; 84155; 84295; 84450; 84460; 84520

== ENCOUNTER → 2018-08-27 | Outpatient (CLI) | payer BC ==
[~2018-08-27] MED LIST changes: +HYDR-385 PO; +ONDA4TAB PO
[2018-08-27 10:58] LABS: PLATELET COUNT, AUTOMATED 227 K/uL (150-450)
--- NOTE | 2018-08-27 11:32 | RADIOLOGY IMAGING REPORT ---
FACILITY: [facility] - [place] PATIENT NAME: Lauryn Ho : 1980 MR: [id number] V: [id number] EXAM DATE: ORDERING PHYSICIAN: BRITTNEY REYES TECHNOLOGIST: Location: [facility] - [place] Patient: Lauryn Ho : 1980 Visit/Account:[id number] Date of Sevice: 08/27/2018 CHEST PA AND LAT HISTORY: Cough. Wheezing. COMPARISON: August 21, 2018. FINDINGS: Cardiomediastinal contours: The heart size is normal. Lungs and pleura: There is no finding of an infiltrate, lymphadenopathy or pleural effusion. Bones/soft tissues: There are no findings of a fracture. IMPRESSION: Normal chest x-ray without findings of acute disease. Report Dictated By: Donnie Meza MD at 08/27/2018 11:28 AM Report E-Signed By: Donnie Meza MD at 08/27/2018 11:28 AM WSN:[id number]
== END ==
LOC: RAD 10:30
PROVIDERS: ATTEND Nurse Practitioner Family
DX: N39.0 Urinary tract infection, site not specified (principal); R05 Cough; R06.2 Wheezing; D72.829 Elevated white blood cell count, unspecified
CPT/HCPCS: 36415; 71046; 85025

== ENCOUNTER → 2018-08-30 | Outpatient (CLI) | payer BC ==
--- NOTE | 2018-08-30 15:31 | RADIOLOGY IMAGING REPORT ---
FACILITY: [facility] - [place] PATIENT NAME: Lauryn Ho : 1980 MR: [id number] V: [id number] EXAM DATE: ORDERING PHYSICIAN: BRITTNEY REYES TECHNOLOGIST: Location: [facility] Patient: Lauryn Ho : 1980 Visit/Account:[id number] Date of Sevice: 08/30/2018 ABDOMEN/PELVIS W/O CONTRAST HISTORY: Right-sided flank pain x2-3 weeks. TECHNIQUE: CT abdomen and pelvis without intravenous contrast. One of the following dose optimization techniques was utilized in the performance of this exam: Autom ated exposure control; adjustment of the mA and/or kV according to the patient's size; or use of an i terative reconstruction technique. Specific details can be referenced in the facility's radiology C T exam operational policy. CONTRAST: None. Please note, lack of IV contrast limits evaluation of solid organs. COMPARISON: CT dated August 21, 2018 FINDINGS: Visualized lung bases: Tiny hiatal hernia. Otherwise negative. Hepatobiliary: Negative. Spleen: Negative. Adrenals: Negative. Pancreas: Negative. Kidneys/: Negative. No visualized urolithiasis or hydronephrosis. GI: Negative. Appendix is absent. Vessels/spaces/nodes: Negative. Bones/soft tissues: Negative. IMPRESSION: 1. No acute findings. No visualized urolithiasis. 2. Incidental/chronic findings, as above. Report Dictated By: John Fontana MD at 08/30/2018 3:22 PM Report E-Signed By: John Fontana MD at 08/30/2018 3:26 PM WSN:[email or web address]
== END ==
LOC: CT 14:38
PROVIDERS: ATTEND Nurse Practitioner Family
DX: R10.9 Unspecified abdominal pain (principal); R31.9 Hematuria, unspecified
CPT/HCPCS: 74176

== ENCOUNTER → 2018-12-04 | Outpatient (CLI) | payer BC | LOC: LAB 09:43 | PROVIDERS: ATTEND Nurse Practitioner Family | DX: E55.9 Vitamin D deficiency, unspecified (principal); E03.9 Hypothyroidism, unspecified | CPT/HCPCS: 36415; 82306; 84443 ==

== ENCOUNTER → 2018-12-18 | Outpatient (CLI) | payer BC ==
--- NOTE | 2018-12-18 09:51 | RADIOLOGY IMAGING REPORT ---
FACILITY: [facility] - [place], [place] PATIENT NAME: Lauryn Ho : 1980 MR: [id number] V: [id number] EXAM DATE: ORDERING PHYSICIAN: RICHIE SIERRA TECHNOLOGIST: Location: [facility] Patient: Lauryn Ho : 1980 Visit/Account:[id number] Date of Sevice: 12/18/2018 EXAMINATION: MRI Lumbar spine without intravenous contrast HISTORY: Low back pain. Right lower extremity numbness. COMPARISON: CT abdomen and pelvis dated 08/30/2018. TECHNIQUE: Multi-planar, multi-sequence lumbar spine MRI was performed without intravenous contrast administration. FINDINGS: Alignment: Normal. Vertebral marrow signal: Negative. Distal thoracic cord: Negative. Conus: negative, terminates at T12. Cauda equina: Negative. Paravertebral soft tissues: Negative. Visualized abdominal and pelvic structures: Negative. Disc Spaces: Lower thoracic spine: Negative. L1-2: Negative. L2-3: Negative. L3-4: Negative. L4-5: Small central disc protrusion. Mild facet hypertrophy. No significant stenosis. L5-S1: Small left central disc protrusion. Mild facet hypertrophy. No significant stenosis. IMPRESSION: Mild degenerative disc disease and facet hypertrophy in the lower lumbar spine. Report Dictated By: Johnny Sung MD at 12/18/2018 9:41 AM Report E-Signed By: Johnny Sung MD at 12/18/2018 9:46 AM WSN:[email or web address]
== END ==
LOC: MRI 00:40
PROVIDERS: ATTEND Physical Medicine & Rehabilitation Pain Medicine
DX: M51.36 Other intervertebral disc degeneration, lumbar region (principal); M54.9 Dorsalgia, unspecified; R42 Dizziness and giddiness
CPT/HCPCS: 72148

== ENCOUNTER 2018-12-26 19:11 | Emergency (ER) | payer BC ==
[2018-12-26] MEDS ORDERED: CYCL10TA29 PO (19:21)
--- NOTE | 2018-12-26 19:28 | ER Report ---
History and Physical Time Seen By MD: 19:24 Hx. of Stated Complaint: PAIN IN BACK ANDPELVIC AREA SINCE MONDAY. GETTING WORSE TODAY. STATES SHE HAS TO URINATE A LOT/OFTEN HPI/ROS CHIEF COMPLAINT: Abdominal pain HISTORY OF PRESENT ILLNESS: This is a 38-year-old female who presents to the emergency department for lower abdominal pain. Patient states that about 3-4 days ago she developed some lower abdominal pain, she states she used some soap that she is allergic to, thought perhaps the soap caused some irritation to the urethra, she's had some dysuria, frequency and urgency. This is not resolved. The pain then moved to the back last night with increased urinary symptoms. No fevers or chills. No rashes. No chest pain. No shortness of breath. No headaches. REVIEW OF SYSTEMS: Constitutional: No fever, no chills. Eyes: No discharge. ENT: No sore throat. Cardiovascular: No chest pain, no palpitations. Respiratory: No cough, no shortness of breath. Gastrointestinal: As above. Genitourinary: No hematuria. Musculoskeletal: As above. Skin: No rashes. Neurological: No headache. Allergies: Coded Allergies: amoxicillin (Verified Allergy, Intermediate, PROJECTILE VOMITING, 12/26/18) erythromycin base (Verified Allergy, Intermediate, PROJECTILE VOMITING, 12/26/18) Penicillins (Verified Allergy, Mild, 12/26/18) Uncoded Allergies: HAYFEVER (Allergy, Intermediate, SNEEZING, ITCHING, WATERY EYES, 01/30/13) Home Meds Active Scripts Sulfamethoxazole/Trimet 800-160 Mg Tab (BACTRIM DS TABLET) 1 Each Tablet, 1 TAB PO Q12H for 4 Days, #7 TAB 0 Refills Prov:CHAPINCITO MATHEWS CONTRACT PREPARER-BC 12/26/18 Ondansetron (ZOFRAN ODT) 4 Mg Tab.rapdis, 4 MG PO Q6H PRN for NAUSEA/VOMITING, #20 TAB.ROBYN Prov:COLUMBA DURANTP 08/21/18 Hydrocodone Bit/Acetaminophen (HYDROCODON-ACETAMINOPHEN 5-325) 1 Each Tablet, 1 EACH PO Q4-6H PRN for PAIN, #10 TAB Prov:COLUMBA DURANTP 08/21/18 Hydrocodone Bit/Acetaminophen (NORCO 5-325 TABLET) 1 Each Tablet, 1 EACH PO Q4H PRN for PAIN, #10 TAB Prov:JOSUÉ BLOOD DO 08/16/18 Reported Medications Cyclobenzaprine Hcl (CYCLOBENZAPRINE HCL) 10 Mg Tablet, 5 MG PO TID, #9 TAB 12/26/18 Sulfamethoxazole/Trimet 800-160 Mg Tab (BACTRIM DS TABLET) 1 Each Tablet, 1 TAB PO Q12H, TAB 08/16/18 Guaifenesin (MUCINEX) 600 Mg Tablet.er, 600 MG PO 08/16/18 Diphenhydramine Hcl (BENADRYL) 25 Mg Capsule, 25 MG PO Q6-8H, CAPSULE 08/16/18 Omeprazole (OMEPRAZOLE) 20 Mg Capsule.dr, 1 CAP PO QDAY, CAP 06/11/17 Fluoxetine Hcl (PROZAC) 10 Mg Capsule, 60 MG PO QDAY, 0 Refills 06/24/13 Norgestrel-Ethinyl Estradiol (LO-OVRAL-28) 1 Each Tablet, 1 EACH PO 05/29/13 Past Medical/Surgical History The patient has a past medical and surgical history of migraines, palpitations or bronchitis, pneumonia, gastritis, recurrent right flank pain, ovarian cysts, bilateral salpingectomy, degenerative back disease, chronic back pain, wears glasses, hypothyroidism, depression, anxiety, appendectomy, partial hysterectomy, right knee surgery. Reviewed Nurses Notes: Yes Hx Smoking: Yes (1/2ppd) Smoking Status: Current: Every Day Smoker Exposure to Second Hand Smoke?: Yes Hx Substance Use Disorder: No Hx Alcohol Use: No Constitutional Vital Sign - Last 24 Hours 12/26/18 12/26/18 12/26/18 12/26/18 19:17 19:17 19:26 19:30 Temp 97.8 Pulse 88 82 Resp 18 B/P (MAP) 165/96 165/96 (119) 142/96 (111) Pulse Ox 94 95 O2 Delivery Room Air 12/26/18 12/26/18 12/26/18 12/26/18 19:41 19:56 20:11 20:13 Pulse 79 ? B/P (MAP) 140/101 (114) Pulse Ox 94 12/26/18 12/26/18 12/26/18 12/26/18 20:26 20:30 20:41 20:46 Pulse 84 93 96 B/P (MAP) 150/91 (110) Pulse Ox 90 93 93 12/26/18 12/26/18 12/26/18 12/26/18 21:00 21:01 21:16 21:30 Pulse 92 93 B/P (MAP) 138/84 (102) 139/87 (104) Pulse Ox 90 88 12/26/18 21:31 Pulse 92 Pulse Ox 89 Physical Exam General Appearance: The patient is alert, has no immediate need for airway pr otection and no signs of toxicity. Eyes: Pupils equal and round no pallor or injection. ENT, Mouth: Mucous membranes are moist. Respiratory: There are no retractions, lungs are clear to auscultation. Cardiovascular: Regular rate and rhythm, no murmurs, clicks or rubs. Gastrointestinal: Abdomen is round, soft right and left lower quadrant and suprapubic abdominal pain, no masses, no abdominal bruits, hyperactive bowel sounds. Neurological: Alert and oriented 4. Moving all extremities. Following all commands. No focal neuro deficits. Skin: Warm and dry, no rashes. Musculoskeletal: Neck is supple non tender. Extremities are nontender, nonswollen and have full range of motion. DIFFERENTIAL DIAGNOSIS: After history and physical exam differential diagnosis was considered for abdominal pain in a female including but not limited to ovarian cyst, pelvic inflammatory disease, ovarian torsion, urinary tract infection, and appendicitis. Medical Decision Making Data Points Result Diagram: 12/26/18194812/26/181948 Laboratory Hematology Test 12/26/18 19:15 12/26/18 19:49 Urine Color Straw Urine Clarity Clear Urine pH 6.0 pH (4.8-9.5) Urine Specific Daniel 1.003 Urine Protein Negative mg/dL (NEGATIVE) Urine Glucose (UA) Negative mg/dL (NEGATIVE) Urine Ketones Negative mg/dL (NEGATIVE) Urine Blood Large (NEGATIVE) Urine Nitrite Negative (NEGATIVE) Urine Bilirubin Negative (NEGATIVE) Urine Urobilinogen Negative mg/dL (0.2-1.9) Urine Leukocyte Esterase Moderate (NEGATIVE) Urine RBC 2 /HPF (0-2/HPF) Urine WBC 18 /HPF (0-5/HPF) Urine Squamous Epithelial Cells Few /LPF (</=FEW) Urine Bacteria Few /HPF (NONE-FEW) Urine Mucus None /HPF (NONE-FEW) Red Blood Count 5.19 M/uL (4.17-5.56) Mean Corpuscular Volume 91.9 fL (80.0-96.0) Mean Corpuscular Hemoglobin 31.3 pg (26.0-33.0) Mean Corpuscular Hemoglobin Concent 34.0 g/dL (32.0-36.0) Red Cell Distribution Width 13.5 % (11.5-14.5) Mean Platelet Volume 9.1 fL (7.2-11.1) Neutrophils (%) (Auto) 56.2 % (39.4-72.5) Lymphocytes (%) (Auto) 29.7 % (17.6-49.6) Monocytes (%) (Auto) 11.7 % (4.1-12.4) Eosinophils (%) (Auto) 1.6 % (0.4-6.7) Basophils (%) (Auto) 0.8 % (0.3-1.4) Nucleated RBC Relative Count (auto) 0.0 /100WBC Neutrophils # (Auto) 5.8 K/uL (2.0-7.4) Lymphocytes # (Auto) 3.1 K/uL (1.3-3.6) Monocytes # (Auto) 1.2 K/uL (0.3-1.0) Eosinophils # (Auto) 0.2 K/uL (0.0-0.5) Basophils # (Auto) 0.1 K/uL (0.0-0.1) Nucleated RBC Absolute Count (auto) 0.00 K/uL Sodium Level 142 mmol/L (137-145) Potassium Level 3.9 mmol/L (3.5-5.0) Chloride Level 105 mmol/L (98-107) Carbon Dioxide Level 29 mmol/L (22-31) Blood Urea Nitrogen 17 mg/dl (7-18) Creatinine 1.00 mg/dl (0.52-1.04) Glomerular Filtration Rate Calc > 60.0 Random Glucose 120 mg/dl (75-110) Calcium Level 9.0 mg/dl (8.4-10.2) Total Bilirubin 0.2 mg/dl (0.2-1.3) Aspartate Amino Transf (AST/SGOT) 17 U/L (0-35) Alanine Aminotransferase (ALT/SGPT) 14 U/L (0-56) Alkaline Phosphatase 76 U/L (0-126) Total Protein 7.6 g/dl (6.3-8.2) Albumin 4.3 g/dl (3.5-5.0) Lipase 134 U/L (23-300) Chemistry Test 12/26/18 19:15 12/26/18 19:49 Urine Color Straw Urine Clarity Clear Urine pH 6.0 pH (4.8-9.5) Urine Specific Daniel 1.003 Urine Protein Negative mg/dL (NEGATIVE) Urine Glucose (UA) Negative mg/dL (NEGATIVE) Urine Ketones Negative mg/dL (NEGATIVE) Urine Blood Large (NEGATIVE) Urine Nitrite Negative (NEGATIVE) Urine Bilirubin Negative (NEGATIVE) Urine Urobilinogen Negative mg/dL (0.2-1.9) Urine Leukocyte Esterase Moderate (NEGATIVE) Urine RBC 2 /HPF (0-2/HPF) Urine WBC 18 /HPF (0-5/HPF) Urine Squamous Epithelial Cells Few /LPF (</=FEW) Urine Bacteria Few /HPF (NONE-FEW) Urine Mucus None /HPF (NONE-FEW) White Blood Count 10.4 k/uL (4.5-11.0) Red Blood Count 5.19 M/uL (4.17-5.56) Hemoglobin 16.2 g/dL (12.0-16.0) Hematocrit 47.7 % (34.0-47.0) Mean Corpuscular Volume 91.9 fL (80.0-96.0) Mean Corpuscular Hemoglobin 31.3 pg (26.0-33.0) Mean Corpuscular Hemoglobin Concent 34.0 g/dL (32.0-36.0) Red Cell Distribution Width 13.5 % (11.5-14.5) Platelet Count 214 K/uL (150-450) Mean Platelet Volume 9.1 fL (7.2-11.1) Neutrophils (%) (Auto) 56.2 % (39.4-72.5) Lymphocytes (%) (Auto) 29.7 % (17.6-49.6) Monocytes (%) (Auto) 11.7 % (4.1-12.4) Eosinophils (%) (Auto) 1.6 % (0.4-6.7) Basophils (%) (Auto) 0.8 % (0.3-1.4) Nucleated RBC Relative Count (auto) 0.0 /100WBC Neutrophils # (Auto) 5.8 K/uL (2.0-7.4) Lymphocytes # (Auto) 3.1 K/uL (1.3-3.6) Monocytes # (Auto) 1.2 K/uL (0.3-1.0) Eosinophils # (Auto) 0.2 K/uL (0.0-0.5) Basophils # (Auto) 0.1 K/uL (0.0-0.1) Nucleated RBC Absolute Count (auto) 0.00 K/uL Glomerular Filtration Rate Calc > 60.0 Calcium Level 9.0 mg/dl (8.4-10.2) Total Bilirubin 0.2 mg/dl (0.2-1.3) Aspartate Amino Transf (AST/SGOT) 17 U/L (0-35) Alanine Aminotransferase (ALT/SGPT) 14 U/L (0-56) Alkaline Phosphatase 76 U/L (0-126) Total Protein 7.6 g/dl (6.3-8.2) Albumin 4.3 g/dl (3.5-5.0) Lipase 134 U/L (23-300) Urinalysis Test 12/26/18 19:15 Urine Color Straw Urine Clarity Clear Urine pH 6.0 pH (4.8-9.5) Urine Specific Daniel 1.003 Urine Protein Negative mg/dL (NEGATIVE) Urine Glucose (UA) Negative mg/dL (NEGATIVE) Urine Ketones Negative mg/dL (NEGATIVE) Urine Blood Large (NEGATIVE) Urine Nitrite Negative (NEGATIVE) Urine Bilirubin Negative (NEGATIVE) Urine Urobilinogen Negative mg/dL (0.2-1.9) Urine Leukocyte Esterase Moderate (NEGATIVE) Urine RBC 2 /HPF (0-2/HPF) Urine WBC 18 /HPF (0-5/HPF) Urine Squamous Epithelial Cells Few /LPF (</=FEW) Urine Bacteria Few /HPF (NONE-FEW) Urine Mucus None /HPF (NONE-FEW) EKG/Imaging Imaging Location: [facility] [place] Patient: Lauryn Ho : 1980 Visit/Account:[id number] Date of Sevice: 12/26/2018 COMPUTED TOMOGRAPHY OF THE Abdomen and Pelvis with CONTRAST INDICATION: Lower abdominal pain. TECHNIQUE: Contiguous axial 3.[address] images were obtained through the abdomen and pelvis after the administration of 95 mL Isovue-370. Coronal and sagittal reformatted images were submitted. COMPARISON: CT August 30, 2018. FINDINGS: Lung bases: The lung bases are clear Liver and hepatic vasculature: No focal liver lesion. Gallbladder and bile ducts: Normal Spleen: Normal Pancreas: Normal Adrenals: Normal Kidneys, ureters and bladder: There is bilateral thickening of the ureteral urothelium with stranding along the course of both ureters, more notable on the right and left. The bladder is decompressed, but the wall does appear thickened. There are no urinary tract calculi. Retroperitoneum and aorta: Normal caliber aorta. GI tract, mesentery and peritoneum: No bowel obstruction. Surgically absent appendix. Uterus and adnexa: There is probably a small fibroid on the right aspect of the uterine fundus. No abnormal fluid in the pelvis. Unremarkable ovaries. Bones and soft tissues: No acute osseous abnormality IMPRESSION: Marked urothelial thickening and enhancement involving both ureters and suspected bladder wall thickening as well as stranding along the course of the ureters suggest a urinary tract infection. There are no stones. Correlate with urinalysis. One of the following dose optimization techniques was utilized in the performance of this exam: Automated exposure control; adjustment of the mA and/or kV according to the patient's size; or use of an iterative reconstruc tion technique. Specific details can be referenced in the facility's radiology CT exam operational policy. Report Dictated By: Alyssia Vargas MD at 12/26/2018 9:08 PM Report E-Signed By: Alyssia Vargas MD at 12/26/2018 9:18 PM WSN:[id number] ED Course/Re-evaluation Clinical Indication for ER IV: Hydration, IV Access ED Course Patient was admitted to room. A history of physical obtained. Differential diagnoses were considered. An IV was started. A CBC, CMP, UA were collected. A 1 L normal saline bolus was given. Patient was given 12.5 mg IV Phenergan, 4 mg IV morphine.lab studies unremarkable. UA showing large blood, moderate leukocytes, urine white blood cells with very few epithelial cells. CT showing bladder wall thickening and thickening of the ureters, consistent with urinary tract infection. I reviewed the results with the patient. Quedarytedt patient on Bactrim, patient states she's done well with this in the past, she was given one dose in the emergency department the remainder of the prescription was sent to the patient's pharmacy. Patient will continue drinking plenty of water, I did encourage her to follow-up with her primary care provider within one week for reevaluation. Patient expressed understanding, was in agreement with this plan of care and discharged home. Decision to Disposition Date: Dec 26, 2018 Decision to Disposition Time: 21:27 Depart Departure Latest Vital Signs Vital Signs Date Time Temp Pulse Resp B/P (MAP) Pulse Ox O2 Delivery O2 Flow Rate FiO2 12/26/18 21:31 92 89 12/26/18 21:30 139/87 (104) 12/26/18 19:17 97.8 18 Room Air Impression: Primary Impression: Urinary tract infection Condition: Improved Disposition: HOME OR SELF-CARE Referrals: BLOSSOM JACOBSON (PCP) 1 Week New Scripts Sulfamethoxazole/Trimet 800-160 Mg Tab (BACTRIM DS TABLET) 1 Each Tablet 1 TAB PO Q12H for 4 Days, #7 TAB 0 Refills Prov: CHAPINCITO MATHEWS-TRI 12/26/18 Patient Instructions: Urinary Tract Infection in Women (ED) Additional Instructions: He do have a urinary tract infection, this is also showing up on the CT of the abdomen and pelvis. We started to on Bactrim in the emergency department. The remainder of the prescription was sent to your pharmacy. Please follow-up with your primary care provider within one week for reevaluation. Be sure to drink plenty of water. Get plenty of rest. Return to the emergency department for any other concerns or worsening symptoms. Problem Qualifiers Primary Impression: Urinary tract infection Urinary tract infection type: acute cystitis Hematuria presence: with hematuria Qualified Codes: N30.01 - Acute cystitis with hematuria CHAPINCITO MATHEWS-BC Dec 26, 2018 19:28
[2018-12-26] MEDS ORDERED: NS(*) 0.9% 1000 ML BAG 1,000 ML IV ONE (19:41)
[2018-12-26] MEDS ORDERED: MORPHINE 4 MG/ML SDV IVP ONE (19:45)
[2018-12-26] MEDS ORDERED: PROMETHAZINE 25 MG/ML 1 ML AMP IVP ONE (19:45)
[2018-12-26 19:57] LABS: PLATELET COUNT, AUTOMATED 214 K/uL (150-450)
--- NOTE | 2018-12-26 21:22 | RADIOLOGY IMAGING REPORT ---
FACILITY: [facility] PATIENT NAME: Lauryn Ho : 1980 MR: [id number] V: [id number] EXAM DATE: ORDERING PHYSICIAN: CHAPINCITO MATHEWS TECHNOLOGIST: Location: [facility] Patient: Lauryn Ho : 1980 Visit/Account:[id number] Date of Sevice: 12/26/2018 COMPUTED TOMOGRAPHY OF THE Abdomen and Pelvis with CONTRAST INDICATION: Lower abdominal pain. TECHNIQUE: Contiguous axial 3.[address] images were obtained through the abdomen and pelvis after the administration of 95 mL Isovue-370. Coronal and sagittal reformatted images were submitted. COMPARISON: CT August 30, 2018. FINDINGS: Lung bases: The lung bases are clear Liver and hepatic vasculature: No focal liver lesion. Gallbladder and bile ducts: Normal Spleen: Normal Pancreas: Normal Adrenals: Normal Kidneys, ureters and bladder: There is bilateral thickening of the ureteral urothelium with strandin g along the course of both ureters, more notable on the right and left. The bladder is decompressed, but the wall does appear thickened. There are no urinary tract calculi. Retroperitoneum and aorta: Normal caliber aorta. GI tract, mesentery and peritoneum: No bowel obstruction. Surgically absent appendix. Uterus and adnexa: There is probably a small fibroid on the right aspect of the uterine fundus. No a bnormal fluid in the pelvis. Unremarkable ovaries. Bones and soft tissues: No acute osseous abnormality IMPRESSION: Marked urothelial thickening and enhancement involving both ureters and suspected bladder wall thicke anusha as well as stranding along the course of the ureters suggest a urinary tract infection. There a re no stones. Correlate with urinalysis. One of the following dose optimization techniques was utilized in the performance of this exam: Autom ated exposure control; adjustment of the mA and/or kV according to the patient's size; or use of an i terative reconstruction technique. Specific details can be referenced in the facility's radiology C T exam operational policy. Report Dictated By: Alyssia Vargas MD at 12/26/2018 9:08 PM Report E-Signed By: Alyssia Vargas MD at 12/26/2018 9:18 PM WSN:[id number]
[2018-12-26] MEDS ORDERED: SULF-198 PO (21:29)
[2018-12-26 21:30] VITALS: BP 139/87
[2018-12-26] MEDS ORDERED: TRIMETH/SULFA DS 160-800MG TAB PO ONE (21:30)
== END 2018-12-26 21:41 | disposition home or self-care (01) ==
LOC: ER 20:09
DX: N30.01 Acute cystitis with hematuria (principal)
CPT/HCPCS: 74177; 81001; 83690; 85025; 96361; 96374; 99283; J2270; J2550; J7030; 82040; 82247; 82310; 82374; 82435; 82565; 82947; 84075; 84132; 84155; 84295; 84450; 84460; 84520; Q9967

== ENCOUNTER → 2019-03-26 | Outpatient (CLI) | payer BC ==
[~2019-03-26] MED LIST changes: +CYCL10TA29 PO
== END ==
LOC: LAB 09:21
PROVIDERS: ATTEND Nurse Practitioner Family
DX: R51 Headache (principal); M54.5 Low back pain; E55.9 Vitamin D deficiency, unspecified; E03.9 Hypothyroidism, unspecified
CPT/HCPCS: 36415; 82040; 82247; 82306; 82310; 82374; 82435; 82565; 82947; 83036; 84075; 84132; 84155; 84295; 84443; 84450; 84460; 84520

== ENCOUNTER 2019-04-11 15:12 | Emergency (ER) | payer BC ==
[~2019-04-11 15:12] MED LIST changes: -OMEP-125 PO; +OMEP-126 PO
[2019-04-11 15:34] VITALS: BP 140/89
[2019-04-11] MEDS ORDERED: SERT-173 PO (15:39)
--- NOTE | 2019-04-11 16:01 | RADIOLOGY IMAGING REPORT ---
FACILITY: [facility] [place] PATIENT NAME: Lauryn Ho : 1980 MR: [id number] V: [id number] EXAM DATE: ORDERING PHYSICIAN: DINH REEVES TECHNOLOGIST: Location: [facility] Patient: Lauryn Ho : 1980 Visit/Account:[id number] Date of Sevice: 04/11/2019 Exam type: HAND COMPLETE RIGHT History: Right hand pain x1/2 weeks, no known injury Comparison: None. Findings: Three views were submitted there is no evidence of acute fracture dislocation, radiopaque foreign bod y or significant arthritic change involving the right hand IMPRESSION: 1. No acute osteoarticular abnormality of the right hand is seen Report Dictated By: Alice Abbott MD at 04/11/2019 3:55 PM Report E-Signed By: Alice Abbott MD at 04/11/2019 3:57 PM WSN:[id number]
--- NOTE | 2019-04-11 16:16 | ER Report ---
History and Physical Time Seen By MD: 16:16 Hx. of Stated Complaint: RIGHT HAND PAIN X 1 WEEK, SOME SWELLING PER PT, PT REPORTS TINGLING SINCE COMING TO ED HPI/ROS CHIEF COMPLAINT: hand pain HISTORY OF PRESENT ILLNESS: This is a 38 year old female. She has had hand pain for a little over a week. No injury. The entire hand and ulnar side of wrist hurts. Some swelling. Has tingling off and on in entire hand. No history of injuries. No history of numbness or pain in the past. The only repetitive motions would be using a game controller on her game console. Sees worse with recently helping her mother get around because of mom's injuries. No history of carpal tunnel, or other repetitive motion injuries. Sudden onset, whole hand. No fevers or chills. Has normal sensation at this time. Can't traveling buyer things well, almost dropping things. Allergies: Coded Allergies: amoxicillin (Verified Allergy, Intermediate, PROJECTILE VOMITING, 04/11/19) erythromycin base (Verified Allergy, Intermediate, PROJECTILE VOMITING, 04/11/19) Penicillins (Verified Allergy, Mild, 04/11/19) Uncoded Allergies: HAYFEVER (Allergy, Intermediate, SNEEZING, ITCHING, WATERY EYES, 01/30/13) Home Meds Active Scripts Prednisone (PREDNISONE) 20 Mg Tablet, 60 MG PO QDAY, #12 TAB 0 Refills Prov:KATIE ZARATE MD 04/11/19 Reported Medications Sertraline Hcl (ZOLOFT) 100 Mg Tablet, 1 TAB PO QDAY, TAB 04/11/19 Cyclobenzaprine Hcl (CYCLOBENZAPRINE HCL) 10 Mg Tablet, 5 MG PO TID, #9 TAB 12/26/18 Guaifenesin (MUCINEX) 600 Mg Tablet.er, 600 MG PO 08/16/18 Diphenhydramine Hcl (BENADRYL) 25 Mg Capsule, 25 MG PO Q6-8H, CAPSULE 08/16/18 Omeprazole (OMEPRAZOLE) 20 Mg Capsule.dr, 1 CAP PO QDAY, CAP 06/11/17 Norgestrel-Ethinyl Estradiol (LO-OVRAL-28) 1 Each Tablet, 1 EACH PO 05/29/13 Discontinued Reported Medications Sulfamethoxazole/Trimet 800-160 Mg Tab (BACTRIM DS TABLET) 1 Each Tablet, 1 TAB PO Q12H, TAB 08/16/18 Fluoxetine Hcl (PROZAC) 10 Mg Capsule, 60 MG PO QDAY, 0 Refills 06/24/13 Discontinued Scripts Sulfamethoxazole/Trimet 800-160 Mg Tab (BACTRIM DS TABLET) 1 Each Tablet, 1 TAB PO Q12H for 4 Days, #7 TAB 0 Refills Prov:CHAPINCITO MATHEWS Jt [employer]ESS[employer] 12/26/18 Ondansetron (ZOFRAN ODT) 4 Mg Tab.rapdis, 4 MG PO Q6H PRN for NAUSEA/VOMITING, #20 TAB.ROBYN Prov:COLUMBA DURANT [employer]ICY PROFESSOR 08/21/18 Hydrocodone Bit/Acetaminophen (HYDROCODON-ACETAMINOPHEN 5-325) 1 Each Tablet, 1 EACH PO Q4-6H PRN for PAIN, #10 TAB Prov:COLUMBA DURANT [employer] PROFESSOR 08/21/18 Hydrocodone Bit/Acetaminophen (NORCO 5-325 TABLET) 1 Each Tablet, 1 EACH PO Q4H PRN for PAIN, #10 TAB Prov:JOSUÉ BLOOD DO 08/16/18 Reviewed Nurses Notes: Yes Hx Smoking: Yes (1/2ppd) Smoking Status: Current: Every Day Smoker Exposure to Second Hand Smoke?: Yes Hx Substance Use Disorder: No Hx Alcohol Use: No Constitutional Vital Sign - Last 24 Hours 04/11/19 15:34 Temp 98.4 Pulse 70 Resp 16 B/P (MAP) 140/89 Pulse Ox 95 O2 Delivery Room Air Physical Exam General Appearance: The patient is alert. No acute distress. Cardiovascular: Normal peripheral perfusion of the hand, pulses and capillary refill. No edema. Neurological: Alert and oriented x3. Paresthesias throughout the hand on exam. Can move, but hurts to do so. Strength seems to be intact, but inhibited due to pain. Skin: Warm and dry. No rashes. Musculoskeletal: Some swelling. Pain is worse with palpation in ulnar side of hand and over ulnar styloid area of wrist. DIFFERENTIAL DIAGNOSIS: After history and physical exam, differential diagnosis was considered for hand pain, possible inflammaatory disorder such as gout, overuse injury, does not appear infectious but will consider this with labs. Medical Decision Making Data Points Result Diagram: 04/11/19 1642 04/11/19 1642 Laboratory Hematology Test 04/11/19 16:42 Red Blood Count 5.09 M/uL (4.17-5.56) Mean Corpuscular Volume 90.2 fL (80.0-96.0) Mean Corpuscular Hemoglobin 30.5 pg (26.0-33.0) Mean Corpuscular Hemoglobin Concent 33.8 g/dL (32.0-36.0) Red Cell Distribution Width 14.1 % (11.5-14.5) Mean Platelet Volume 8.7 fL (7.2-11.1) Neutrophils (%) (Auto) 61.0 % (39.4-72.5) Lymphocytes (%) (Auto) 29.8 % (17.6-49.6) Monocytes (%) (Auto) 7.1 % (4.1-12.4) Eosinophils (%) (Auto) 1.4 % (0.4-6.7) Basophils (%) (Auto) 0.7 % (0.3-1.4) Nucleated RBC Relative Count (auto) 0.0 /100WBC Neutrophils # (Auto) 6.0 K/uL (2.0-7.4) Lymphocytes # (Auto) 2.9 K/uL (1.3-3.6) Monocytes # (Auto) 0.7 K/uL (0.3-1.0) Eosinophils # (Auto) 0.1 K/uL (0.0-0.5) Basophils # (Auto) 0.1 K/uL (0.0-0.1) Nucleated RBC Absolute Count (auto) 0.00 K/uL Erythrocyte Sedimentation Rate 22 mm/HOUR (0-20) Sodium Level 142 mmol/L (137-145) Potassium Level 3.8 mmol/L (3.5-5.0) Chloride Level 110 mmol/L (98-107) Carbon Dioxide Level 21 mmol/L (22-31) Blood Urea Nitrogen 19 mg/dl (7-18) Creatinine 0.80 mg/dl (0.52-1.04) Glomerular Filtration Rate Calc > 60.0 Random Glucose 84 mg/dl (75-110) Calcium Level 9.2 mg/dl (8.4-10.2) Total Bilirubin 0.5 mg/dl (0.2-1.3) Aspartate Amino Transf (AST/SGOT) 20 U/L (0-35) Alanine Aminotransferase (ALT/SGPT) 25 U/L (0-56) Alkaline Phosphatase 59 U/L (0-126) C-Reactive Protein 0.6 mg/dl (<1.0) Total Protein 6.8 g/dl (6.3-8.2) Albumin 3.8 g/dl (3.5-5.0) Chemistry Test 04/11/19 16:42 White Blood Count 9.8 k/uL (4.5-11.0) Red Blood Count 5.09 M/uL (4.17-5.56) Hemoglobin 15.5 g/dL (12.0-16.0) Hematocrit 46.0 % (34.0-47.0) Mean Corpuscular Volume 90.2 fL (80.0-96.0) Mean Corpuscular Hemoglobin 30.5 pg (26.0-33.0) Mean Corpuscular Hemoglobin Concent 33.8 g/dL (32.0-36.0) Red Cell Distribution Width 14.1 % (11.5-14.5) Platelet Count 205 K/uL (150-450) Mean Platelet Volume 8.7 fL (7.2-11.1) Neutrophils (%) (Auto) 61.0 % (39.4-72.5) Lymphocytes (%) (Auto) 29.8 % (17.6-49.6) Monocytes (%) (Auto) 7.1 % (4.1-12.4) Eosinophils (%) (Auto) 1.4 % (0.4-6.7) Basophils (%) (Auto) 0.7 % (0.3-1.4) Nucleated RBC Relative Count (auto) 0.0 /100WBC Neutrophils # (Auto) 6.0 K/uL (2.0-7.4) Lymphocytes # (Auto) 2.9 K/uL (1.3-3.6) Monocytes # (Auto) 0.7 K/uL (0.3-1.0) Eosinophils # (Auto) 0.1 K/uL (0.0-0.5) Basophils # (Auto) 0.1 K/uL (0.0-0.1) Nucleated RBC Absolute Count (auto) 0.00 K/uL Erythrocyte Sedimentation Rate 22 mm/HOUR (0-20) Glomerular Filtration Rate Calc > 60.0 Calcium Level 9.2 mg/dl (8.4-10.2) Total Bilirubin 0.5 mg/dl (0.2-1.3) Aspartate Amino Transf (AST/SGOT) 20 U/L (0-35) Alanine Aminotransferase (ALT/SGPT) 25 U/L (0-56) Alkaline Phosphatase 59 U/L (0-126) C-Reactive Protein 0.6 mg/dl (<1.0) Total Protein 6.8 g/dl (6.3-8.2) Albumin 3.8 g/dl (3.5-5.0) EKG/Imaging Imaging Exam type: HAND COMPLETE RIGHT History: Right hand pain x1/2 weeks, no known injury Comparison: None. Findings: Three views were submitted there is no evidence of acute fracture dislocation, radiopaque foreign body or significant arthritic change involving the right hand IMPRESSION: 1. No acute osteoarticular abnormality of the right hand is seen Report Dictated By: Alice Abbott MD at 04/11/2019 3:55 PM ED Course/Re-evaluation ED Course Labs unremarkable other than the ESR being elevated. Mild changes in metabolic panel. Hand x-ray negative. Discussed these findings with the patient. Recommended Prednisone, Compression, and follow-up with [facility]. Decision to Disposition Date: Apr 11, 2019 Decision to Disposition Time: 17:35 Depart Departure Latest Vital Signs Vital Signs Date Time Temp Pulse Resp B/P (MAP) Pulse Ox O2 Delivery O2 Flow Rate FiO2 04/11/19 15:34 98.4 70 16 140/89 95 Room Air Impression: Primary Impression: Hand pain, right Condition: Improved Disposition: HOME OR SELF-CARE Referrals: BLOSSOM JACOBSON (PCP) New Scripts Prednisone (PREDNISONE) 20 Mg Tablet 60 MG PO QDAY, #12 TAB 0 Refills Prov: KATIE ZARATE MD 04/11/19 Patient Instructions: Musculoskeletal Pain (ED) Additional Instructions: Compression wraps. Prednisone 20mg tablets, 3 tablets once a day for 4 more days. Follow-up with Dr. Roberts or Dr. Francis at [facility]. KATIE ZARATE MD Apr 11, 2019 16:17
[2019-04-11 16:49] LABS: PLATELET COUNT, AUTOMATED 205 K/uL (150-450)
[2019-04-11] MEDS ORDERED: predniSONE 20 MG TAB PO ONE (17:30)
[2019-04-11] MEDS ORDERED: PRED20TA6 PO (17:36)
== END 2019-04-11 17:49 | disposition home or self-care (01) ==
LOC: ER 16:14
DX: M79.641 Pain in right hand (principal)
CPT/HCPCS: 36415; 73130; 85025; 85651; 86140; 99283; J7512; 82040; 82247; 82310; 82374; 82435; 82565; 82947; 84075; 84132; 84155; 84295; 84450; 84460; 84520